=== PATIENT | male | born 1970 | race Caucasian/White ===

== ENCOUNTER 2020-12-30 11:20 | Day surgery (SDC) | payer MEDICARE ==
[2020-12-30] VITALS (11 sets, daily range): BP systolic 95–142; BP diastolic 68–104; PULSE 103–117; TEMP 98.2
[~2020-12-30] VITALS: Ht 167.6 cm; Wt 104.3 kg
[2020-12-30] MEDS ORDERED: LASIX 20MG TABL20 MG PO (12:01)
[2020-12-30] MEDS ORDERED: PROAIR HFA0.09 MG/AC IH (12:02)
[2020-12-30] MEDS ORDERED: RT ALBUTER2.5 MG/0.5 IH (12:02)
[2020-12-30] MEDS ORDERED: ENTRESTO 24 MG1 EACH PO (12:04)
[2020-12-30 12:38] LABS: HEMATOCRIT 41.5 % (42.0-52.0); HEMOGLOBIN 13.3 g/dl (13.5-18.0); MEAN CELL VOLUME 89 fl (80.0-100.0); MEAN CORPUSCULAR HEMOGLOBIN 29 pg (27.0-31.0); MEAN CORPUSCULAR HGB CONC 32 g/dl (33.0-37.0); MEAN PLATELET VOLUME 10.7 fl (7.4-10.4); PLATELET COUNT 404 K/mm3 (130-400); RED BLOOD COUNT 4.64 M/mm3 (4.20-5.60); REDCELL DISTRIBUTION WIDTH-CV 14.6 % (11.5-14.5)
[2020-12-30 12:41] LABS: INR 1.1 (0.8-3.0); PROTHROMBIN TIME 12.3 SECONDS (9.7-12.8)
[2020-12-30 12:44] LABS: PARTIAL THROMBOPLASTIN TIME 28.5 SECONDS (26.0-37.0)
[2020-12-30 12:59] LABS: CALCIUM 9.1 mg/dL (8.4-10.2); CREATININE, serum 1.2 (0.66-1.25)
--- NOTE | 2020-12-30 13:26 | NUR ---
SEE MERGE FOR ALL MEDICATION ADMINISTRATION TIMES, INTRA AND POST SEDATION ASSESSMENTS
[2020-12-30] MEDS ORDERED: ASPIRIN E.C. 8181 MG PO (14:25)
[2020-12-30] MEDS ORDERED: ALDACTONE 25MG25 M1 PO (14:28)
[2020-12-30] MEDS ORDERED: ALTACE 5MG5 MG PO (14:29)
[2020-12-30] MEDS ORDERED: COREG 6.256.25 MG/TA PO (14:29)
[2020-12-30] MEDS ORDERED: LANOXIN 0.120.125 MG PO (14:30)
--- NOTE | 2020-12-30 17:00 | NUR ---
Pt ready for discharge at this time. TR band was deflated with no problem, site dressed with folded 2x2, bandaid and coban. cms intact distal. I reviewed dc/rx and fu instructions with pt and , both of who verbalize understanding. Pt is up and amb with steady gait. IV dc'd with cath intact, dressing applied. Pt escorted to exit via wheelchair.
== END 2020-12-30 17:58 | disposition home or self-care (01) ==
LOC: COL.CAR 11:20
PROVIDERS: Internal Medicine Cardiovascular Disease
DX: I42.0 Dilated cardiomyopathy (principal); I11.0 Hypertensive heart disease with heart failure; I50.20 Unspecified systolic (congestive) heart failure; I44.7 Left bundle-branch block, unspecified; J45.909 Unspecified asthma, uncomplicated; F17.290 Nicotine dependence, other tobacco product, uncomplicated; I08.1 Rheumatic disorders of both mitral and tricuspid valves; Z79.899 Other long term (current) drug therapy; Z96.82 Presence of neurostimulator
CPT/HCPCS: C1769; J1644; J2250; J3010; Q9967

== ENCOUNTER 2021-06-10 07:09 | Day surgery (SDC) | payer MEDICARE ==
[~2021-06-10] VITALS: Ht 167.6 cm; Wt 113.9 kg
[2021-06-10] VITALS (9 sets, daily range): BP systolic 97–145; BP diastolic 60–109; PULSE 77–109; TEMP 97.7–98.3
[~2021-06-10 07:09] MED LIST: ALDACTONE 25MG25 M1 PO; ALTACE 5MG5 MG PO; ASPIRIN E.C. 8181 MG PO; COREG 6.256.25 MG/TA PO; ENTRESTO 24 MG1 EACH PO; LANOXIN 0.120.125 MG PO; LASIX 20MG TABL20 MG PO; PROAIR HFA0.09 MG/AC IH; RT ALBUTER2.5 MG/0.5 IH
[2021-06-10 08:34] LABS: BASO # 0.1 K/mm3 (0.0-0.2); BASO % 0.9 % (0.0-2.0); EOS # 1.3 K/mm3 (0.0-0.7); EOS % 16.5 % (0.0-4.0); GRAN % 49.1 % (42.2-75.2); HEMATOCRIT 42.6 % (42.0-52.0); HEMOGLOBIN 13.8 g/dl (13.5-18.0); LYMPH # 2.1 K/mm3 (1.2-3.4); LYMPH % 25.3 % (20.0-51.0); MEAN CELL VOLUME 94 fl (80.0-100.0); MEAN CORPUSCULAR HEMOGLOBIN 31 pg (27-31); MEAN CORPUSCULAR HGB CONC 32 g/dl (33.0-37.0); MEAN PLATELET VOLUME 10.7 fl (7.4-10.4); MONO # 0.7 K/mm3 (0.1-0.6); PLATELET COUNT 277 K/mm3 (130-400); RED BLOOD COUNT 4.53 M/mm3 (4.20-5.60); REDCELL DISTRIBUTION WIDTH-CV 13.9 % (11.5-14.5)
[2021-06-10] MEDS ORDERED: LANOXIN 0.120.125 MG PO (08:34)
[2021-06-10] MEDS ORDERED: ALTACE 5MG5 MG PO (08:35)
[2021-06-10] MEDS ORDERED: COREG 6.256.25 MG/TA PO (08:35)
[2021-06-10] MEDS ORDERED: ALDACTONE 25MG25 M1 PO (08:36)
[2021-06-10] MEDS ORDERED: ASPIRIN 81M81 MG/TA2 PO (08:36)
[2021-06-10 08:42] LABS: INR 1.1 (0.8-3.0)
[2021-06-10 08:47] LABS: CALCIUM 8.6 mg/dL (8.4-10.2); CREATININE, serum 1.48 mg/dL (0.72-1.25); POTASSIUM 4.8 mmol/L (3.5-4.5)
--- NOTE | 2021-06-10 08:56 | NUR ---
SEE MERGE FOR ALL MEDICATION ADMINISTRATION TIMES/DOSAGES AND INTRA/POST PROCEDURE SEDATION ASSESSMENTS.
--- NOTE | 2021-06-10 10:42 | NUR ---
pT TO TRANSFER TO ROOM 319 POST PROCEDURE
--- NOTE | 2021-06-10 19:07 | NUR ---
NO ADVERSE EVENTS THROUGHOUT THE SHIFT. PT RESTING UPON ENTRY. VITAL SIGNS REMAIN WNL. COMPLAINED OF DIFFICULTY BREATHING. RESPIRATORY THERAPY CONTACTED FOR CONSULT. EDUCATED PT TO AVOID LAYING ON LEFT ARM AND RAISING IT ABOVE HEAD. CONTINUES TO HAVE NORMAL URINE OUTPUT. SATS REMAIN IN 98%-99% ON ROOM AIR. AT BEDSIDE REPORTS THAT PT HAS PAIN AT PACEMAKER SITE. ICE PACK PLACED ON SITE. GAUZE AND PAPER TAPE DRESSING REMAIN IN PLACE. NO CONCERNS AT THIS TIME.
--- NOTE | 2021-06-10 21:00 | NUR ---
Patient is sleeping in bed, easily arousable. States some pain in the chest r/t incision, did not required pain medication. Alert and oriented x 4, VSS. Telemetry in place, 60's. Ice in place, HOB 30 degres. Assessment completed, medications provided. No other needs at this time. Call light within reach.
[2021-06-11 00:27] VITALS: BP 108/72; PULSE 84; TEMP 97.5
[2021-06-11 04:00] VITALS: BP 104/62; PULSE 67; TEMP 97.5
--- NOTE | 2021-06-11 05:05 | NUR ---
Pt complains of increasing wheezing and SOB. O2 sat 95-96%. 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 Johnson who is plant production worker. Ordered restart albuterol treatment.
[2021-06-11 07:42] VITALS: BP 122/85; PULSE 66; TEMP 98
--- NOTE | 2021-06-11 08:00 | NUR ---
PATIENT IS A&O. VSS ON TELE. DENIES ANY PAIN, N/V OR SOA. PATIENT WHEEING IS MUCH IMPROVED AFTER AM BREATHING TX. PACEMAKER DRESSING IS CD&I WITH GAUZE. PACEMAKER ENT. THIS AM PER ORDERS. PATIENT REPORTS AM EKG ALREADY OBTAINED AND HE IS HOPING TO DISCHARGE HOME TODAY. BREAKFAST TRAY ORDERED. AM MEDS GIVEN. HEAD TO TOE ASSESSMENT WNL. INDEPENDENT IN ROOM. NO OTHER NEEDS AT THIS TIME.
--- NOTE | 2021-06-11 09:27 | NUR ---
laboratory worker met with patient to discuss discharge plan. Patient currently lives in [place] with his Kasandra ([phone]). Patient is independent with his ADL's and does not utilize any DME to assist with mobility. PCP is Dr. Smith at [facility] and he utilizes [facility] for medications. Patient states he does not have a DPOA-HC estbalished at this time and does not wish to create one. Education provided and patient verbalizes his understanding. Upon discharge, patient is planning on returning home. Discharge plan: Home
--- NOTE | 2021-06-11 09:45 | NUR ---
Initial visit; Patient thanked Carmen for looking in on him and offering God's blessings.
[2021-06-11] MEDS ORDERED: CEPHALEXIN500 M1 PO (11:03)
[2021-06-11] MEDS ORDERED: ZEBETA 5MG5 MG PO (11:04)
[2021-06-11 11:09] VITALS: BP 112/82; PULSE 72; TEMP 98.1
--- NOTE | 2021-06-11 12:20 | NUR ---
PATIENT DISCHARGING HOME POST PACEMAKER PLACEMENT. GAVE DISCHARGE INSTRUCTIONS, E-SCRIPTS SENT, AND DISCUSSED F/U APT. ANSWERED QUESTIONS/CONCERNS. PATIENT GIVEN PACEMAKER CARD & BOOK. DC'D TELE. DC'D LEFT HAND IV AND COVERED SITE WITH GAUZE & COBAN. PATIENT IS GETTING DRESSED & PACKED UP WHILE HE WAITS FOR HIS . PATIENT INSTRUCTED TO CALL WHEN HIS RIDE IS HERE.
--- NOTE | 2021-06-11 13:24 | NUR ---
PATIENT'S HERE TO PICK HIM UP FOR DISCHARGE. PATIENT ESCORTED OUT VIA AMBULATORY TO PERSONAL VEHICLE WITH .
== END 2021-06-11 13:25 | disposition home or self-care (01) ==
LOC: COL.CAR 07:09 → MEDICAL 12:19 → COL.CAR 06-11 13:25
PROVIDERS: Internal Medicine Cardiovascular Disease
DX: I44.7 Left bundle-branch block, unspecified (principal); I50.22 Chronic systolic (congestive) heart failure; I42.0 Dilated cardiomyopathy
CPT/HCPCS: OP; C1769; C1777; C1882; C1894; C1898; C1900; J0690; J1200; J1940; J2250; J3010; J7030